=== PATIENT | female | born 1970 | race Caucasian/White ===

== ENCOUNTER 2020-07-30 13:51 | Emergency (ER) | payer MEDICAID ==
[~2020-07-30] VITALS: Ht 162.6 cm; Wt 70.5 kg
[2020-07-30] MEDS ORDERED: HYDROcodone/acetaminophen 5mg/325mg tablet PO ONE (14:45)
[2020-07-30] MEDS ORDERED: LIDOcaine 1% W/epiNEPHrine 1:200,000 10ml vial IJ ONE (14:45)
[2020-07-30] MEDS ORDERED: LIDOcaine 1% w/epiNEPHrine 1:200,000 30ml vial IJ ONE (15:35)
[2020-07-30] MEDS ORDERED: AMOX-117 PO (16:04)
[2020-07-30 17:04] VITALS: BP 141/87
== END 2020-07-30 17:06 | disposition home or self-care (01) ==
LOC: ER 13:51
DX: S61.210A Laceration without foreign body of right index finger without damage to nail, initial encounter (principal); Z88.8 Allergy status to other drugs, medicaments and biological substances; Z79.2 Long term (current) use of antibiotics; W54.0XXA Bitten by dog, initial encounter; Y93.89 Activity, other specified; Y92.89 Other specified places as the place of occurrence of the external cause; Y99.8 Other external cause status
CPT/HCPCS: 12001; 64450; 73140; 99283; 99284